=== PATIENT | female | born 1940 | race Caucasian/White ===

== ENCOUNTER → 2024-02-24 11:02 | Outpatient (REF) | payer MEDICARE, OTHER, SELFPAY ==
[2024-02-24 14:08] LABS: Erythrocyte Sed Rate 41 mm/hour (0-20)
[2024-02-24 14:25] LABS: TSH Reflex To Free T4 1.35 uIU/ml (0.47-4.68)
[2024-02-26 14:50] LABS: Ceruloplasmin 27 mg/dL (16-45)
[2024-02-27 02:25] LABS: ANA, IgG Reflex to HEp-2 None Detected (None Detected)
== END ==
LOC: HWLAB 11:02
PROVIDERS: ATTENDING PHYSICIAN Psychiatry & Neurology Neurology; FAMILY PHYSICIAN Family Medicine
DX: R25.1 Tremor, unspecified (principal); D51.8 Other vitamin B12 deficiency anemias; Z79.899 Other long term (current) drug therapy
CPT/HCPCS: 36415; 82306; 82390; 82728; 84443; 85652; 86038; 86140

== ENCOUNTER → 2025-01-15 13:08 | Outpatient (REF) | payer MEDICARE, OTHER, SELFPAY ==
[2025-01-15 14:40] LABS: ALT (SGPT) < 10 U/L (0-35); AST (SGOT) 19 U/L (14-36); Albumin 4.3 g/dl (3.5-5.0); Alkaline Phosphatase 99 U/L (38-126); Blood Urea Nitrogen 23 mg/dl (7-17); Calcium 9.7 mg/dl (8.4-10.2); Carbon Dioxide 30 mmol/L (22-30); Chloride 102 mmol/L (98-107); Glucose 95 mg/dl (70-99); Potassium 4.7 mmol/L (3.5-5.1); Sodium 142 mmol/L (135-145); Total Bilirubin 0.6 mg/dl (0.2-1.3); Total Protein 6.9 g/dl (6.3-8.2); eGFR > 60.00
[2025-01-15 15:10] LABS: Cortisol, Random 5.5 ug/dl; TSH 1.35 uIU/ml (0.47-4.68)
[2025-01-17 14:45] LABS: C-Peptide 4.4 ng/mL (0.5-3.3); Insulin, Random 10 uIU/mL
== END ==
LOC: REG 13:08
PROVIDERS: ATTENDING PHYSICIAN Internal Medicine Endocrinology, Diabetes & Metabolism; FAMILY PHYSICIAN Family Medicine
DX: E16.2 Hypoglycemia, unspecified (principal); R73.9 Hyperglycemia, unspecified; R53.1 Weakness
CPT/HCPCS: 36415; 80053; 82533; 83525; 84443; 84681

== ENCOUNTER → 2025-03-16 14:21 | Outpatient (REF) | payer MEDICARE, OTHER, SELFPAY | LOC: RAD 14:21 | PROVIDERS: ATTENDING PHYSICIAN Family Medicine | DX: I99.9 Unspecified disorder of circulatory system (principal) | CPT/HCPCS: 93922; 93925 ==